=== PATIENT | male | born 1985 | race Caucasian/White ===

== ENCOUNTER 2020-10-24 11:20 | Outpatient (NON) | payer BC, SELFPAY ==
[2020-10-24 23:24] LABS: SARS-CoV-2 RNA PCR Negative
== END 2020-10-24 11:21 ==
LOC: ANHCOVIDDT 11:21
PROVIDERS: PCP Nurse Practitioner; Visit Provider Nurse Practitioner Family
DX: R68.89 Other general symptoms and signs (principal); Z20.828 Contact with and (suspected) exposure to other viral communicable diseases
CPT/HCPCS: 87635; C9803; U0003

== ENCOUNTER 2020-10-25 18:55 | Emergency (ER) | payer BC, SELFPAY ==
--- NOTE | ~2020-10-25 | XR_ITS ---
EXAMINATION: XR chest 1V portable DATE: 10/25/2020 19:19 INDICATION: Asthma presenting with cough and deep chest pain. TECHNIQUE: frontal view of the chest was obtained. COMPARISON: Chest radiograph dated 07/13/2019 FINDINGS: The lungs remain clear with no focal airspace opacities, pulmonary edema, pleural effusion or pneumot horax. The cardiomediastinal silhouette is normal. Visualized bones and soft tissues are unremarkable . IMPRESSION: 1. No acute cardiopulmonary disease. Reviewed, dictated and finalized at location A. NT SOLUTIONS MANAGER
[2020-10-25 18:57] VITALS: BP 138/84; PULSE 72; RESP 16; TEMP 35.8; O2SAT 100
--- NOTE | 2020-10-25 19:11 | PC.NURSE ---
Radiology at bedside
[2020-10-25 19:17] VITALS: BP 131/86; PULSE 71; RESP 18; TEMP 37.1; O2SAT 100
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
[2020-10-25 21:19] VITALS: BP 115/75; PULSE 73; RESP 18; TEMP 36.9; O2SAT 99
[2020-10-26 12:35] LABS: SARS-CoV-2 RNA PCR Negative
== END 2020-10-25 21:21 | disposition home or self-care (01) ==
PROVIDERS: Emergency Medicine Emergency Medical Services; Emergency Provider Emergency Medicine; PCP Nurse Practitioner
DX: J06.9 Acute upper respiratory infection, unspecified (principal); Z20.828 Contact with and (suspected) exposure to other viral communicable diseases; J45.909 Unspecified asthma, uncomplicated; J21.9 Acute bronchiolitis, unspecified
CPT/HCPCS: 71045; 87635; 99283; C9803; U0003

== ENCOUNTER 2021-01-04 13:25 | Emergency (ER) | payer OTHER, BC, SELFPAY ==
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
[2021-01-04 13:16] VITALS: BP 133/99; PULSE 72; RESP 18; TEMP 36.8; O2SAT 96
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
[2021-01-04] MEDS: KETOROLAC (*BKC) 60 MG/2 ML VIAL IM (13:59)
[2021-01-04] MEDS: methocarbamoL 500 MG TABLET 1000 MG PO (13:59)
[2021-01-04] MEDS: HYDROcodone/acetaminophen (*CRX) 5-325 MG TABLET 1 TAB PO (14:00)
== END 2021-01-04 14:57 | disposition home or self-care (01) ==
LOC: ANHED 14:40
PROVIDERS: Emergency Provider Emergency Medicine; PCP Nurse Practitioner
DX: S80.02XA Contusion of left knee, initial encounter (principal); S80.01XA Contusion of right knee, initial encounter; S13.4XXA Sprain of ligaments of cervical spine, initial encounter; S60.211A Contusion of right wrist, initial encounter; K21.9 Gastro-esophageal reflux disease without esophagitis; J45.909 Unspecified asthma, uncomplicated; V49.40XA Driver injured in collision with unspecified motor vehicles in traffic accident, initial encounter
CPT/HCPCS: 72050; 73110; 73562; 96372; 99284; A9270; J1885

== ENCOUNTER → 2021-01-17 16:36 | Outpatient (CLI) | payer BC, SELFPAY ==
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
== END ==
PROVIDERS: PCP Nurse Practitioner; Visit Provider Nurse Practitioner
DX: M54.9 Dorsalgia, unspecified (principal)
CPT/HCPCS: 72074

== ENCOUNTER 2022-09-30 18:51 | Emergency (ER) | payer BC, SELFPAY ==
[2022-09-30 19:01] VITALS: BP 118/77; PULSE 93; RESP 16; TEMP 38.1; O2SAT 100
[2022-09-30 19:03] VITALS: BP 118/77; PULSE 93; RESP 16; TEMP 38.1; O2SAT 100
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
== END 2022-09-30 19:22 | disposition home or self-care (01) ==
PROVIDERS: Emergency Provider Nurse Practitioner Family
DX: J10.1 Influenza due to other identified influenza virus with other respiratory manifestations (principal); J45.909 Unspecified asthma, uncomplicated; K21.9 Gastro-esophageal reflux disease without esophagitis
CPT/HCPCS: 87804; 99213; G0463

== ENCOUNTER 2022-12-14 08:27 | Emergency (ER) | payer BC, SELFPAY ==
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
[2022-12-14 08:44] VITALS: BP 116/63; PULSE 76; RESP 16; TEMP 36.9; O2SAT 97
== END 2022-12-14 09:24 | disposition home or self-care (01) ==
PROVIDERS: Emergency Provider Registered Nurse; PCP Nurse Practitioner
DX: J01.41 Acute recurrent pansinusitis (principal); J45.909 Unspecified asthma, uncomplicated; K21.9 Gastro-esophageal reflux disease without esophagitis
CPT/HCPCS: 87081; 87880; 99213; G0463

== ENCOUNTER 2024-06-19 10:19 | Emergency (ER) | payer BC, SELFPAY ==
[2024-06-19 10:30] VITALS: BP 133/79; PULSE 59; RESP 14; TEMP 36.6; O2SAT 100
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
[2024-06-19 11:52] LABS: EDSTREPNEGPOS1 Presumptive Negative
== END 2024-06-19 11:57 | disposition home or self-care (01) ==
PROVIDERS: Emergency Provider Nurse Practitioner Family
DX: R07.0 Pain in throat (principal)
CPT/HCPCS: 87081; 87880; 99213; G0463

== ENCOUNTER 2025-03-19 15:23 | Emergency (ER) | payer BC, SELFPAY ==
--- NOTE | ~2025-03-19 | XR_ITS ---
EXAMINATION: XR chest 2V Exam Date/Time: 03/19/2025 15:43 CDT HISTORY: cough, hx of asthma, vapes Comparison: 10/25/2020. RESULT: Lines, tubes, and devices: None. Lungs and pleura: Clear. Cardiomediastinal silhouette: Stable. Other: No acute osseous or upper abdominal finding. IMPRESSION: No acute cardiopulmonary process. Reviewed, dictated and finalized at location [facility].
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
[2025-03-19 15:32] VITALS: BP 108/67; PULSE 55; RESP 16; TEMP 36.6; O2SAT 100
== END 2025-03-19 16:18 | disposition home or self-care (01) ==
PROVIDERS: Emergency Provider Nurse Practitioner
DX: J20.9 Acute bronchitis, unspecified (principal); J45.909 Unspecified asthma, uncomplicated; K21.9 Gastro-esophageal reflux disease without esophagitis
CPT/HCPCS: 71046; 99213; G0463

== ENCOUNTER 2025-05-17 17:47 | Emergency (ER) | payer BC, SELFPAY ==
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
[2025-05-17 18:00] VITALS: BP 115/74; PULSE 60; RESP 16; TEMP 36.7; O2SAT 99
== END 2025-05-17 18:19 | disposition home or self-care (01) ==
DX: H92.03 Otalgia, bilateral (principal); J45.909 Unspecified asthma, uncomplicated; K21.9 Gastro-esophageal reflux disease without esophagitis
CPT/HCPCS: 99213; G0463

== ENCOUNTER 2025-07-24 19:16 | Emergency (ER) | payer BC, SELFPAY ==
[2025-07-24 19:26] VITALS: BP 109/77; PULSE 44; RESP 16; TEMP 36.1; O2SAT 99
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
[2025-07-24 19:40] LABS: EDSTREPNEGPOS1 Negative (Negative)
== END 2025-07-24 19:40 | disposition home or self-care (01) ==
PROVIDERS: Emergency Provider Nurse Practitioner
DX: J02.9 Acute pharyngitis, unspecified (principal); J45.909 Unspecified asthma, uncomplicated; K21.9 Gastro-esophageal reflux disease without esophagitis
CPT/HCPCS: 87081; 87880; 99213; G0463